=== PATIENT | male | born 1950 | race Caucasian/White ===

== ENCOUNTER 2017-11-25 16:44 | Inpatient (IN) | payer OTHER ==
[~2017-11-25] VITALS: Ht 177.8 cm; Wt 74.8 kg
[2017-11-25] MEDS ORDERED: DIATRIZOATE MEGL/DIATRIZOA SOD 30 ML BTL PO ONE (17:12)
[2017-11-25 17:35] LABS: BASOPHILS % 0.3 % (0.0-1.0); EOSINOPHILS # (AUTO) 0.1 (0.0-0.4); EOSINOPHILS % 1.6 % (0.0-6.0); HEMATOCRIT 41.7 % (38.2-49.6); HEMOGLOBIN 14.3 g/dL (14.0-18.0); LYMPHOCYTES # (AUTO) 1.6 (1.0-3.2); LYMPHOCYTES % 22.1 % (18.0-39.1); MEAN CORPUSCULAR HEMOGLOBIN 29.4 pg (28-32); MEAN CORPUSCULAR HGB CONC 34.3 g/dL (31-35); MEAN CORPUSCULAR VOLUME 85.6 fL (81-99); MONOCYTES # (AUTO) 0.4 (0.2-0.8); MONOCYTES % 5.5 % (4.4-11.3); NEUTROPHILS # (AUTO) 5.2 (2.1-6.9); NEUTROPHILS % 70.2 % (38.7-80.0); PLATELET COUNT 219 x10e3/uL (140-360); RED BLOOD COUNT 4.87 x10e6/uL (4.3-5.7); RED CELL DISTRIBUTION WIDTH 12.8 % (11.7-14.4)
[2017-11-25 17:48] LABS: INR 1.04; PROTHROMBIN TIME 12.8 seconds (11.9-14.5)
[2017-11-25 17:49] LABS: PARTIAL THROMBOPLASTIN TIME 29.2 seconds (23.8-35.5)
[2017-11-25 17:52] LABS: ALANINE AMINOTRANSFERASE 14 IU/L (0-55); ALBUMIN/GLOBULIN RATIO 1.3 (0.8-2.0); ALKALINE PHOSPHATASE 65 IU/L (40-150); ANION GAP 12.6 mmol/L (8-16); BLOOD UREA NITROGEN 15 mg/dL (7-26); BUN/CREATININE RATIO 15 (6-25); CALCIUM 9.3 mg/dL (8.4-10.2); CARBON DIOXIDE 27 mmol/L (22-29); CHLORIDE 105 mmol/L (98-107); CREATININE, SERUM 0.98 mg/dL (0.72-1.25); EST GLOMERULAR FILTRATION RATE > 60 ML/MIN (60-); GLUCOSE 98 mg/dL (74-118); POTASSIUM 3.6 mmol/L (3.5-5.1); SODIUM 141 mmol/L (136-145)
[2017-11-25] MEDS ORDERED: SODIUM CHLORIDE 0.9% 50ML 50 ML ONE (18:07)
[2017-11-25] MEDS ORDERED: IOPAMIDOL 370 MG/ML 200 ML INFUS..BTL INJ ONE (18:08)
--- NOTE | 2017-11-25 18:44 | Diagnostic Imaging Report ---
CT Abdomen And Pelvis with Intravenous Contrast INDICATION: Rectal bleeding TECHNIQUE: Thin collimation axial images obtained from the diaphragm to the level of the pubic symphysis following the uneventful administration of 100 cc of low osmolar, nonionic intravenous contrast. RADIATION DOSE: Total DLP: 380.4 mGy*cm Estimated effective dose: (DLP x 0.015 x size factor) mSv CTDIvol has been reviewed. It is below the limits set by the Radiation Protocol Committee (RPC). COMPARISON: None. ABDOMEN FINDINGS: Lung Bases: Mucus impaction and several areas of the right lower lobe. Visualized portion of the mediastinum is normal. Liver: Normal attenuation. No evidence for mass. Gallbladder: Present and appears normal. No biliary ductal dilatation. Pancreas: Diffuse fatty atrophy without mass or ductal dilatation. Spleen: Normal in size. No evidence of mass.. Adrenal Glands: No evidence for mass. Kidneys: Right: Normal enhancement. No soft tissue mass. No hydronephrosis. Left: Normal enhancement. No mass.. No hydronephrosis. Lymph Nodes: No enlarged abdominal or perirectal lymph nodes. Aorta: Normal in diameter without gross chronic calcifications PELVIS FINDINGS: Bowel: Stomach: Distended with enteric contrast and is normal. Small Bowel: There are 3 diverticula in the duodenum. Enteric contrast is present throughout the majority of the small bowel without wall thickening or dilatation. Distal small bowel is unopacified. Large Bowel: There is fluid distending the rectum and distal portion of the sigmoid colon. Diverticulosis coli is present without associated inflammation. No mural thickening or perirectal inflammation. Mild of stool in the remainder of the colon. Appendix: Normal appendix. Bladder: Normal. The prostate gland is mildly enlarged. No ureteral dilatation. No free fluid or fluid collection. Lymph nodes: No enlarged mesenteric, pelvic, or inguinal lymph nodes. Bones: Mild to moderate degenerative changes of the lower lumbar spine. No focal osseous lesions. Soft tissues: Unremarkable. IMPRESSION: 1. Fluid distention of the rectum and sigmoid colon without mural thickening or surrounding inflammation.. 2. Diverticulosis coli. No CT evidence of diverticulitis. Duodenal diverticula. 3. No bowel obstruction. Normal appendix. 4. Atherosclerosis. 5. Mucus impaction in the right lower lobe. Recommend CT of the chest on an outpatient basis to evaluate the remainder of the lungs for periodic surveillance. Signed by: Dr. Calin Lutz MD on 11/25/2017 6:40 PM
[2017-11-25] MEDS ORDERED: SODIUM CHLORIDE 0.9% 250ML 250 ML IV ONE (19:30)
--- OUTSIDE RECORDS SUMMARY | 2017-11-25 19:47 | XMS REPORT ---
Author Author [facility] Address Unknown Phone Unavailable Care Team Providers Care Child And Youth Program Assistant Name Role Phone SPENCER PALACIO Unavailable Unavailable Problems This patient has no known problems. Allergies, Adverse Reactions, Alerts This patient has no known allergies or adverse reactions. Medications This patient has no known medications. Results Test Description Test Time Test Comments Text Results Atomic Results Result Comments CT ABDOMEN/PELVIS W [place] [address] Patient Name: BARON POLO JR MR #: [id number] : 1950 Age/Sex: 66/M Req #: [id number] Adm Physician: Ordered by: SPENCER PALACIO MD Report #: [id number] Location: ER Room/Bed: Procedure: [id number] CT/CT ABDOMEN/PELVIS W Exam Date: 11/25/17 Exam Time: 1810 REPORT STATUS: Signed CT Abdomen And Pelvis with Intravenous Contrast INDICATION: Rectal bleeding TECHNIQUE : Thin collimation axial images obtained from the diaphragm to the level of the pubic symphysis following the uneventful administration of 100 cc of low osmolar, nonionic intravenous contrast. RADIATION DOSE: Total DLP: 380.4 mGy*cm Estimated effective dose: (DLP x 0.015 x size factor) mSv CTDIvol has been reviewed. It is below the limits set by the Radiation Protocol Committee (RPC). COMPARISON: None. ABDOMEN FINDINGS: Lung Bases: Mucus impaction and several areas of the right lower lobe. Visualized portion of the mediastinum is normal. Liver: Normal attenuation. No evidence for mass. Gallbladder: Present and appears normal. No biliary ductal dilatation. Pancreas: Diffuse fatty atrophy without mass or ductal dilatation. Spleen: Normal in size. No evidence of mass.. Adrenal Glands: No evidence for mass. Kidneys: Right: Normal enhancement. No soft tissue mass. No hydronephrosis. Left: Normal enhancement. No mass.. No hydronephrosis. Lymph Nodes: No enlarged abdominal or perirectal lymph nodes. Aorta: Normal in diameter without gross chronic calcifications PELVIS FINDINGS: Bowel: Stomach: Distended with enteric contrast and is normal. Small Bowel: There are 3 diverticula in the duodenum. Enteric contrast is present throughout the majority of the small bowel without wall thickening or dilatation. Distal small bowel is unopacified. Large Bowel: There is fluid distending the rectum and distal portion of the sigmoid colon. Diverticulosis coli is present without associated inflammation. No mural thickening or perirectal inflammation. Mild of stool in the remainder of the colon. Appendix: Normal appendix. Bladder: Normal. The prostate gland is mildly enlarged. No ureteral dilatation. No free fluid or fluid collection. Lymph nodes: No enlarged mesenteric, pelvic, or inguinal lymph nodes. Bones: Mild to moderate degenerative changes of the lower lumbar spine. No focal osseous lesions. Soft tissues: Unremarkable. IMPRESSION: 1. Fluid distention of the rectum and sigmoid colon without mural thickening or surrounding inflammation.. 2. Diverticulosis coli. No CT evidence of diverticulitis. Duodenal diverticula. 3. No bowel obstruction. Normal appendix. 4. Atherosclerosis. 5. Mucus impaction in the right lower lobe. Recommend CT of the chest on an outpatient basis to evaluate the remainder of the lungs for periodic surveillance. Signed by: Dr. Ana Lutz MD on 11/25/2017 6:40 PM Dictated By: ANA LUTZ MD 39 Transcribed By : AIYANA on 11/25/171839 COPY TO: SPENCER PALACIO MD
[2017-11-25 20:47] LABS: BASOPHILS % 0.3 % (0.0-1.0); EOSINOPHILS # (AUTO) 0.2 (0.0-0.4); EOSINOPHILS % 3.3 % (0.0-6.0); HEMOGLOBIN 13.4 g/dL (14.0-18.0); LYMPHOCYTES # (AUTO) 1.7 (1.0-3.2); LYMPHOCYTES % 25.7 % (18.0-39.1); MEAN CORPUSCULAR HEMOGLOBIN 29.4 pg (28-32); MEAN CORPUSCULAR HGB CONC 34.4 g/dL (31-35); MEAN CORPUSCULAR VOLUME 85.5 fL (81-99); MONOCYTES # (AUTO) 0.4 (0.2-0.8); MONOCYTES % 6.5 % (4.4-11.3); NEUTROPHILS # (AUTO) 4.3 (2.1-6.9); NEUTROPHILS % 63.9 % (38.7-80.0); PLATELET COUNT 221 x10e3/uL (140-360); RED BLOOD COUNT 4.56 x10e6/uL (4.3-5.7); RED CELL DISTRIBUTION WIDTH 12.9 % (11.7-14.4)
[2017-11-25] MEDS: SODIUM CHLORIDE 0.9% 1000ML 1,000 ML IV SCH (21:54)
[2017-11-25] MEDS ORDERED: SODIUM CHLORIDE 0.9% 250ML 250 ML ONE (23:33)
[2017-11-26 02:11] LABS: HEMOGLOBIN 12.3 g/dL (14.0-18.0)
[2017-11-26 02:51] LABS: BASOPHILS % 0.3 % (0.0-1.0); EOSINOPHILS # (AUTO) 0.2 (0.0-0.4); EOSINOPHILS % 2.6 % (0.0-6.0); HEMATOCRIT 35.9 % (38.2-49.6); HEMOGLOBIN 12.2 g/dL (14.0-18.0); LYMPHOCYTES # (AUTO) 1.9 (1.0-3.2); LYMPHOCYTES % 24.1 % (18.0-39.1); MEAN CORPUSCULAR HEMOGLOBIN 29.3 pg (28-32); MEAN CORPUSCULAR VOLUME 86.3 fL (81-99); MONOCYTES # (AUTO) 0.5 (0.2-0.8); MONOCYTES % 6.6 % (4.4-11.3); NEUTROPHILS # (AUTO) 5.3 (2.1-6.9); NEUTROPHILS % 66.1 % (38.7-80.0); PLATELET COUNT 253 x10e3/uL (140-360); RED BLOOD COUNT 4.16 x10e6/uL (4.3-5.7); RED CELL DISTRIBUTION WIDTH 12.8 % (11.7-14.4)
[2017-11-26 08:23] LABS: BASOPHILS % 0.4 % (0.0-1.0); EOSINOPHILS # (AUTO) 0.2 (0.0-0.4); EOSINOPHILS % 3.5 % (0.0-6.0); HEMATOCRIT 34.9 % (38.2-49.6); LYMPHOCYTES # (AUTO) 1.3 (1.0-3.2); LYMPHOCYTES % 24.5 % (18.0-39.1); MEAN CORPUSCULAR HEMOGLOBIN 29.5 pg (28-32); MEAN CORPUSCULAR HGB CONC 34.4 g/dL (31-35); MEAN CORPUSCULAR VOLUME 85.7 fL (81-99); MONOCYTES # (AUTO) 0.4 (0.2-0.8); MONOCYTES % 7.2 % (4.4-11.3); NEUTROPHILS # (AUTO) 3.5 (2.1-6.9); NEUTROPHILS % 64.2 % (38.7-80.0); PLATELET COUNT 236 x10e3/uL (140-360); RED BLOOD COUNT 4.07 x10e6/uL (4.3-5.7); RED CELL DISTRIBUTION WIDTH 12.7 % (11.7-14.4)
[2017-11-26] MEDS: PANTOPRAZOLE 40 MG 10ML VIAL IV SCH ×2 (08:25→16:56)
[2017-11-26 08:51] LABS: ANION GAP 9.5 mmol/L (8-16); BLOOD UREA NITROGEN 14 mg/dL (7-26); BUN/CREATININE RATIO 18 (6-25); CALCIUM 8.6 mg/dL (8.4-10.2); CARBON DIOXIDE 26 mmol/L (22-29); CHLORIDE 108 mmol/L (98-107); CREATININE, SERUM 0.76 mg/dL (0.72-1.25); EST GLOMERULAR FILTRATION RATE > 60 ML/MIN (60-); GLUCOSE 96 mg/dL (74-118); POTASSIUM 3.5 mmol/L (3.5-5.1); SODIUM 140 mmol/L (136-145)
[2017-11-26] MEDS: SODIUM CHLORIDE 0.9% 1000ML 1,000 ML IV SCH ×3 (11:10→16:01)
[2017-11-26 14:40] LABS: BASOPHILS % 0.2 % (0.0-1.0); EOSINOPHILS # (AUTO) 0.2 (0.0-0.4); HEMATOCRIT 36.7 % (38.2-49.6); HEMOGLOBIN 12.4 g/dL (14.0-18.0); LYMPHOCYTES # (AUTO) 1.5 (1.0-3.2); LYMPHOCYTES % 30.2 % (18.0-39.1); MEAN CORPUSCULAR HEMOGLOBIN 29.4 pg (28-32); MEAN CORPUSCULAR HGB CONC 33.8 g/dL (31-35); MONOCYTES # (AUTO) 0.3 (0.2-0.8); MONOCYTES % 5.7 % (4.4-11.3); NEUTROPHILS % 60.5 % (38.7-80.0); PLATELET COUNT 243 x10e3/uL (140-360); RED BLOOD COUNT 4.22 x10e6/uL (4.3-5.7); RED CELL DISTRIBUTION WIDTH 12.9 % (11.7-14.4)
[2017-11-26 14:44] VITALS: BP 171/105
[2017-11-26 14:45] VITALS: BP 171/105
[2017-11-26 14:48] VITALS: BP 168/111
[2017-11-26] MEDS ORDERED: ACETAMIN/BUTALBITAL/CAFFEINE TAB PO PRN (15:30)
[2017-11-26] MEDS ORDERED: PEG (High)/E-LYTE SOLN 4,000 ML BTL PO ONE (15:45)
[2017-11-26] MEDS: CLONIDINE HCL 0.2 MG TAB PO PRN (15:48)
[2017-11-26] MEDS ORDERED: ASPIRIN81 MG PO (17:01)
[2017-11-26] MEDS ORDERED: ACETAMINOPHEN 325 MG TAB PO PRN (17:45)
--- NOTE | 2017-11-26 18:53 | History and Physical ---
HISTORY OF PRESENT ILLNESS: Patient is a 66-year-old male with past medical history positive for coronary artery disease, status post stent placement in 2009, history of diverticulosis secondary to where he was found to have rectal bleeding. He also had an EGD done in the past which came back negative. Patient came here with bright red blood in the stool for a few days. The blood in the stool started today at 3 p.m. REVIEW OF SYSTEMS: CARDIOVASCULAR: No chest pain or palpitation. RESPIRATORY: No shortness of breath. No cough. GASTROINTESTINAL: No nausea, no vomiting. No diarrhea. He was passing bright red blood in the stools. No black stools. No vomiting blood. No abdominal pain. GENITOURINARY: No frequency and no dysuria. ALLERGIES: NOT ALLERGIC TO ANY MEDICATION. SOCIAL HISTORY: He does not smoke and he does not drink. PAST MEDICAL HISTORY: Positive for coronary artery disease, status post stent placement and diverticulosis. PHYSICAL EXAMINATION VITAL SIGNS: Blood pressure 130/80, temperature 98.8, heart rate 80 per minute, respiratory rate 15 per minute. On the BMP, sodium 140, potassium 3.5, chloride 108. CO2 26. BUN 14. Creatinine 0.76. Glucose 96. On the CBC, white blood count 5.3, hemoglobin 12.0, hematocrit 34.9, platelet count 236,000. PT 12.8. INR 1.04. PTT 29.2. AST 17. ALT 14. Total bilirubin 0.6, alkaline phosphatase 65. FINAL IMPRESSION: 1. Lower gastrointestinal bleed. 2. Coronary artery disease, status post stent placement. 3. Uncontrolled hypertension. PLAN OF TREATMENT: Going to start him on Bystolic 5 mg daily. Clonidine 0.1 mg q.4 h. as needed for hypertension. Fioricet 1 tablet q.4 h. as needed for headache and Tylenol 325 mg q.4 h. as needed for pain or fever. Dr. Eyad Coleman, gastroenterology, has been consulted on the case. The patient is getting preparation for colonoscopy, which is most likely going to be done tomorrow. Hemoglobin and hematocrit are stable. Vital signs are stable. The bleeding has resolved. Job#: [id number]
[2017-11-26 20:30] VITALS: BP 128/74
[2017-11-26 20:40] VITALS: BP 128/74
[2017-11-26 21:02] LABS: BASOPHILS % 0.3 % (0.0-1.0); EOSINOPHILS # (AUTO) 0.2 (0.0-0.4); HEMATOCRIT 39.1 % (38.2-49.6); HEMOGLOBIN 12.9 g/dL (14.0-18.0); LYMPHOCYTES # (AUTO) 2.3 (1.0-3.2); LYMPHOCYTES % 29.9 % (18.0-39.1); MEAN CORPUSCULAR HEMOGLOBIN 29.1 pg (28-32); MEAN CORPUSCULAR VOLUME 88.3 fL (81-99); MONOCYTES # (AUTO) 0.5 (0.2-0.8); MONOCYTES % 6.7 % (4.4-11.3); NEUTROPHILS # (AUTO) 4.6 (2.1-6.9); NEUTROPHILS % 59.8 % (38.7-80.0); PLATELET COUNT 258 x10e3/uL (140-360); RED BLOOD COUNT 4.43 x10e6/uL (4.3-5.7); RED CELL DISTRIBUTION WIDTH 12.9 % (11.7-14.4)
[2017-11-27] VITALS: BP 136/81
[2017-11-27] MEDS: SODIUM CHLORIDE 0.9% 1000ML 1,000 ML IV SCH (03:19)
[2017-11-27 04:00] VITALS: BP 166/90
[2017-11-27] MEDS: CLONIDINE HCL 0.2 MG TAB PO PRN (05:40)
[2017-11-27 07:22] LABS: BASOPHILS % 0.3 % (0.0-1.0); EOSINOPHILS # (AUTO) 0.2 (0.0-0.4); EOSINOPHILS % 3.3 % (0.0-6.0); HEMATOCRIT 31.6 % (38.2-49.6); HEMOGLOBIN 10.8 g/dL (14.0-18.0); LYMPHOCYTES # (AUTO) 1.6 (1.0-3.2); LYMPHOCYTES % 26.4 % (18.0-39.1); MEAN CORPUSCULAR HEMOGLOBIN 29.8 pg (28-32); MEAN CORPUSCULAR HGB CONC 34.2 g/dL (31-35); MEAN CORPUSCULAR VOLUME 87.3 fL (81-99); MONOCYTES # (AUTO) 0.4 (0.2-0.8); MONOCYTES % 7.1 % (4.4-11.3); NEUTROPHILS # (AUTO) 3.8 (2.1-6.9); NEUTROPHILS % 62.6 % (38.7-80.0); PLATELET COUNT 217 x10e3/uL (140-360); RED BLOOD COUNT 3.62 x10e6/uL (4.3-5.7); RED CELL DISTRIBUTION WIDTH 12.7 % (11.7-14.4)
[2017-11-27] MEDS ORDERED: CITRATE OF MAGNESIA 300ML BOTTLE PO ONE (07:30)
[2017-11-27 07:46] VITALS: BP 117/65
[2017-11-27 07:50] VITALS: BP 117/65
[2017-11-27] MEDS: PANTOPRAZOLE 40 MG 10ML VIAL IV SCH (08:29)
[2017-11-27] MEDS ORDERED: NEBIVOLOL 10 MG TAB PO SCH (09:00)
[2017-11-27 12:00] VITALS: BP 146/79
[2017-11-27] MEDS ORDERED: FENTANYL CITRATE/PF 100MCG/2 ML INJ ONE (12:10)
--- NOTE | 2017-11-27 15:35 | Discharge Summary ---
This 66-year-old male with past medical history positive for hypertension and history of diverticulosis came to the ER complaining of a few episodes of rectal bleeding before coming to the ER, which completely resolved. So far, hemoglobin and hematocrit have been stable. There is no evidence of any gastrointestinal bleed or hematuria at all. Patient is going to go for a colonoscopy and possible EGD today by Dr. Eyad Coleman. Should he have no evidence of any active bleeding, the patient might be able to go home today and follow up with his primary care physician, Dr. Stone Araiza. PHYSICAL EXAM: Blood pressure 117/65, temperature 96.6, heart rate 92 per minute, respiratory rate 22 per minute, oxygen saturation 99%. On the physical exam, the heart shows regular rhythm, normal S1 and S2 sounds. Lungs are clear bilaterally. Abdomen is soft. Extremities show no evidence of cyanosis, edema or trauma. FINAL IMPRESSION 1. Episode of rectal bleeding, which completely resolved. 2. History of hypertension. LABS: On the blood work, we have BMP with sodium 140, potassium 3.5, chloride 108, CO2 26, BUN 14, creatinine 0.76, glucose 96. On the CBC, white blood count 6.07, hemoglobin 10.8, hematocrit 31.6, platelet count 270,000. PT 12.8, PTT 29.2, INR 1.04. AST 17, ALT 14, total bilirubin 0.6, alkaline phosphatase 65. FINAL IMPRESSION 1. Episode of rectal bleeding, which is completely resolved. 2. Hypertension. Patient is going to have an EGD and colonoscopy. If there is no evidence of any active bleeding, patient might be able to go home today. He will continue with Bystolic 5 mg daily and Protonix 40 mg twice a day. Follow up with his primary care physician in a week. Discharge home if okay with Dr. Eyad Coleman of gastroenterology. ALEX TERRY MD Job#: [id number]
[2017-11-27] MEDS ORDERED: PROPOFOL IV EMULSION 10 MG/ML 50 ML VIAL ONE (17:39)
[2017-11-27] MEDS ORDERED: LIDOCAINE HCL 2% LOCAL INJ 5 ML SDV VIAL INJ ONE (17:39)
[2017-11-27] MEDS ORDERED: HYOSCYAMINE SULFATE 0.5 MG/ML AMP ONE (17:39)
--- NOTE | 2017-11-27 17:56 | Operative Report ---
DATE OF PROCEDURE: November 27, 2017 REFERRING PHYSICIAN: Dr. Alex Terry PROCEDURE PERFORMED: Esophagogastroduodenoscopy with biopsies and a colonoscopy. INDICATIONS FOR ESOPHAGOGASTRODUODENOSCOPY: Acid reflux. INDICATIONS FOR COLONOSCOPY: Rectal bleeding. MEDICATION: Patient was done under MAC. Please see anesthesiologist's note. PROCEDURE: With patient in left lateral decubitus position, flexible fiberoptic Olympus gastroscope was introduced into the esophagus under direct visualization without any difficulty. There was some patchy erythema noted in distal esophagus. A minute tongue of velvety red mucosa was noted to extend proximally from the GE junction that was biopsied to rule out Noble's. The scope was then advanced with ease into the stomach traversing a small sliding hiatal hernia. Mucosa overlying the antrum and the body revealed some patchy erythema and mild to moderate edema and biopsies were obtained sent to stain for H. pylori. A minute polyp was noted in the distal body of the stomach and that was excised per the cold biopsy forceps. The pylorus was of normal contour and shape. Was intubated with ease and the scope was advanced all the way to the 2nd portion of the duodenum. The scope was then withdrawn slowly and a prominent fold was noted in the proximal 2nd portion that was biopsied. The mucosa overlying the duodenal bulb appeared to be within normal limits. The scope was then withdrawn back into the stomach and retroflexed and the mucosa overlying the fundus and the cardia appeared to be within normal limits. The scope was then straightened out. The stomach was decompressed. Scope was subsequently withdrawn. Patient tolerated procedure well. IMPRESSION: 1. Mild distal esophagitis. 2. Rule out Noble's esophagus. 3. Small sliding hiatal hernia. 4. Gastritis biopsied. Biopsy sent to stain for H. pylori. 5. Gastric polyp body excised with the cold biopsy forceps. 6. Prominent fold proximal 2nd portion biopsied. PLAN: Follow up histology. Initiate Protonix 40 mg 1 p.o. q.a.m. a.c. PROCEDURE: Patient was then turned around and after adequate lubrication of the anal canal a flexible fiberoptic Olympus colonoscope was inserted into the rectum with ease and advanced all the way to the cecum. It was then withdrawn slowly. Mucosa overlying the cecum appeared to be within normal limits. Scattered diverticular disease was noted throughout without active bleeding. Otherwise, the ascending, transverse, descending and sigmoid was within normal limits. The rectum appeared to be within normal limits. The scope was then retroflexed into the distal rectum and small internal hemorrhoids were noted, none of which was actively bleeding. The scope was then straightened out. The rectosigmoid area as well as the distal rectal area were decompressed. Scope was subsequently withdrawn. Patient tolerated the procedure well. IMPRESSION 1. Diverticulosis. 2. Internal hemorrhoids, none actively bleeding. PLAN: Follow hemoglobin and hematocrit. The patient might benefit from a followup colonoscopy in 5-10 years. Job#: [id number] cc:ALEX TERRY MD
[2017-11-27 18:30] LABS: BASOPHILS % 0.2 % (0.0-1.0); EOSINOPHILS # (AUTO) 0.2 (0.0-0.4); HEMATOCRIT 32.1 % (38.2-49.6); HEMOGLOBIN 10.7 g/dL (14.0-18.0); LYMPHOCYTES # (AUTO) 1.4 (1.0-3.2); LYMPHOCYTES % 27.2 % (18.0-39.1); MEAN CORPUSCULAR HEMOGLOBIN 29.2 pg (28-32); MEAN CORPUSCULAR HGB CONC 33.3 g/dL (31-35); MEAN CORPUSCULAR VOLUME 87.5 fL (81-99); MONOCYTES # (AUTO) 0.4 (0.2-0.8); MONOCYTES % 7.6 % (4.4-11.3); NEUTROPHILS # (AUTO) 3.3 (2.1-6.9); NEUTROPHILS % 61.8 % (38.7-80.0); PLATELET COUNT 202 x10e3/uL (140-360); RED BLOOD COUNT 3.67 x10e6/uL (4.3-5.7); RED CELL DISTRIBUTION WIDTH 12.9 % (11.7-14.4)
[2017-11-27 20:00] VITALS: BP 142/76
== END 2017-11-27 20:15 | disposition home or self-care (01) | DRG 379 ==
LOC: ER 16:44 → ERHOLD 19:19 → IMCU 11-26 14:29 → MED/SURG 11-26 20:18
PROVIDERS: ADMIT Internal Medicine; ATTEND Internal Medicine
PROC: 30233R1 Transfusion of Nonautologous Platelets into Peripheral Vein, Percutaneous Approach (ICD-10-PCS; 2017-11-25)
PROC: 0DB48ZX Excision of Esophagogastric Junction, Via Natural or Artificial Opening Endoscopic, Diagnostic (ICD-10-PCS; 2017-11-27)
PROC: 0DJD8ZZ Inspection of Lower Intestinal Tract, Via Natural or Artificial Opening Endoscopic (ICD-10-PCS; 2017-11-27)
PROC: 0DB18ZX Excision of Upper Esophagus, Via Natural or Artificial Opening Endoscopic, Diagnostic (ICD-10-PCS; principal; 2017-11-27 15:30)
PROC: 0DB68ZX Excision of Stomach, Via Natural or Artificial Opening Endoscopic, Diagnostic (ICD-10-PCS; 2017-11-27 15:30)
DX: K92.1 Melena (principal); I10 Essential (primary) hypertension; I25.10 Atherosclerotic heart disease of native coronary artery without angina pectoris; Z95.5 Presence of coronary angioplasty implant and graft; K44.9 Diaphragmatic hernia without obstruction or gangrene; K29.70 Gastritis, unspecified, without bleeding; K57.30 Diverticulosis of large intestine without perforation or abscess without bleeding; K64.8 Other hemorrhoids; K21.0 Gastro-esophageal reflux disease with esophagitis
CPT/HCPCS: 36415; 36430; 43239; 45378; 74177; 80048; 80053; 85014; 85018; 85025; 85610; 85730; 86850; 86900; 86920; 88305; 88312; 99284; J1980; J2001; J7030; J7050; P9034; Q9967

== ENCOUNTER → 2018-11-26 | Outpatient (CLI) | payer MEDICARE ==
[~2018-11-26] MED LIST: ASPIRIN81 MG PO
[2018-11-26 09:55] LABS: BASOPHILS % 0.4 % (0.0-1.0); EOSINOPHILS # (AUTO) 0.3 (0.0-0.4); EOSINOPHILS % 4.5 % (0.0-6.0); HEMATOCRIT 44.9 % (38.2-49.6); HEMOGLOBIN 14.9 g/dL (14.0-18.0); LYMPHOCYTES # (AUTO) 1.5 (1.0-3.2); LYMPHOCYTES % 26.7 % (18.0-39.1); MEAN CORPUSCULAR HEMOGLOBIN 29.2 pg (28-32); MEAN CORPUSCULAR HGB CONC 33.2 g/dL (31-35); MEAN CORPUSCULAR VOLUME 87.9 fL (81-99); MONOCYTES # (AUTO) 0.6 (0.2-0.8); MONOCYTES % 11.1 % (4.4-11.3); NEUTROPHILS # (AUTO) 3.2 (2.1-6.9); NEUTROPHILS % 57.1 % (38.7-80.0); PLATELET COUNT 205 x10e3/uL (140-360); RED BLOOD COUNT 5.11 x10e6/uL (4.3-5.7)
[2018-11-26 10:22] LABS: ALANINE AMINOTRANSFERASE 16 IU/L (0-55); ALBUMIN 3.6 g/dL (3.5-5.0); ALKALINE PHOSPHATASE 66 IU/L (40-150); ANION GAP 9.6 mmol/L (8-16); BLOOD UREA NITROGEN 11 mg/dL (7-26); BUN/CREATININE RATIO 13 (6-25); CALCIUM 9.3 mg/dL (8.4-10.2); CARBON DIOXIDE 28 mmol/L (22-29); CHLORIDE 104 mmol/L (98-107); CHOL/HDL RATIO 3.6 (3.9-4.7); CHOLESTEROL 193 MD/DL (0-199); CREATININE, SERUM 0.87 mg/dL (0.72-1.25); EST GLOMERULAR FILTRATION RATE > 60 ML/MIN (60-); GLUCOSE 99 mg/dL (74-118); HDL CHOLESTEROL 54 MG/DL (40-60); LDL CHOLESTEROL 124 MG/DL (60-130); POTASSIUM 3.6 mmol/L (3.5-5.1); SODIUM 138 mmol/L (136-145); TRIGLYCERIDES 74 MG/DL (0-149)
--- NOTE | 2018-11-26 15:09 | Diagnostic Imaging Report ---
EXAM: CHEST 2 VIEWS DATE: 11/26/2018 9:13 AM INDICATION:Respiratory infection COMPARISON: None FINDINGS: Lines and tubes: None Heart size normal. No focal pulmonary opacity, pleural effusion or pneumothorax. There is a calcified granuloma in the left lower lobe. Upper abdomen unremarkable. No acute bony abnormality. IMPRESSION: Normal appearance of the chest. Signed by: Dr. Charlie Edwards M.D. on 11/26/2018 3:06 PM
== END ==
LOC: RAD 09:03
PROVIDERS: ATTEND General Practice
DX: R05 Cough (principal); J06.9 Acute upper respiratory infection, unspecified; Z12.5 Encounter for screening for malignant neoplasm of prostate; Z13.6 Encounter for screening for cardiovascular disorders; I10 Essential (primary) hypertension; R53.83 Other fatigue
CPT/HCPCS: 36415; 71046; 80053; 80061; 84152; 85025

== ENCOUNTER 2019-06-27 18:02 | Inpatient (IN) | payer MEDICARE ==
[~2019-06-27] VITALS: Ht 180.3 cm; Wt 72.3 kg
--- NOTE | 2019-06-27 20:10 | Diagnostic Imaging Report ---
EXAM: CT Abdomen and Pelvis WITHOUT contrast INDICATION: Abdominal pain ^[id number] ^1915 COMPARISON: CT abdomen/pelvis, 11/25/2017 TECHNIQUE: Abdomen and pelvis were scanned utilizing a multidetector helical scanner from the lung base to the pubic symphysis without administration of IV contrast. Absence of intravenous contrast decreases sensitivity for detection of focal lesions and vascular pathology. Coronal and sagittal reformations were obtained. Routine protocol was performed. Dose modulation, iterative reconstruction, and/or weight based adjustment of the mA/kV was utilized to reduce the radiation dose to as low as reasonably achievable. IV CONTRAST: None. ORAL CONTRAST: None RADIATION DOSE: Total DLP: ... mGy*cm Estimated effective dose: (DLP x 0.015 x size factor) mSv COMPLICATIONS: None FINDINGS: LINES and TUBES: None. LOWER THORAX: There are several rounded opacities at the right lung base with appearance suggesting bronchial mucus impaction, stable from previous exam. A calcified granuloma is seen in the left lower lobe. Heart size normal. HEPATOBILIARY: No focal hepatic lesions. No biliary ductal dilation. GALLBLADDER: No radio-opaque stones or sludge. No wall thickening. SPLEEN: No splenomegaly. PANCREAS: No focal masses or ductal dilatation. ADRENALS: No adrenal nodules KIDNEYS/URETERS: No hydronephrosis. There is a stable 2.0 cm exophytic mass of the anterior midportion right kidney with density suggesting cyst. No stones. GI TRACT: Inflammatory fat stranding is seen in the right lower quadrant adjacent to the cecal pole. A normal appendix is not clearly identified. An ill-defined tubular structure (series 2, image 54; series 301, image 41) likely represents a dilated appendix. Sigmoid diverticulosis with no CT evidence for acute diverticulitis. PELVIC ORGANS/BLADDER: Urinary bladder appears unremarkable. No discrete abnormal mass or fluid collection in the pelvis. LYMPH NODES: No dominant lymph node mass is seen in the abdomen, retroperitoneum or pelvis. VESSELS: The aortoiliac vessels are atherosclerotic with extensive calcified plaque. No abnormal dilatation of the abdominal aorta. PERITONEUM / RETROPERITONEUM: No pneumoperitoneum or ascites. BONES: No acute or suspicious bony lesions. There are degenerative changes in the spine. Disc space narrowing at L4-5. SOFT TISSUES: Superficial surrounding soft tissue unremarkable. Findings were discussed with on 06/27/2019 at 8:05 PM. IMPRESSION: 1. There is inflammatory stranding at the cecal pole in the right lower quadrant. An ill-defined tubular structure is seen suggesting dilated appendix and acute appendicitis. There is no free air or discrete fluid collection. 2. Again noted are tubular structures at the right lung base compatible with mucus impacted bronchi. 3. Extensive aortic atherosclerotic calcification and calcification of aortic branches. Staff: Jerry Signed by: Dr. Charlie Edwards M.D. on 06/27/2019 8:07 PM
[2019-06-27] MEDS ORDERED: PIPER-TAZ 3.375 GM 50 ML IV ONE (20:30)
--- NOTE | 2019-06-27 21:03 | NUR ---
[facility] NOTIFIED OF TRANSFER, ETA 30 MINUTES
[2019-06-27] MEDS ORDERED: PIPER-TAZ 3.375 GM 50 ML ONE (21:09)
[2019-06-27] MEDS ORDERED: SODIUM CHLORIDE 0.9% 1000ML 1,000 ML ONE (21:09)
[2019-06-27] MEDS: SODIUM CHLORIDE 0.9% 1000ML 1,000 ML IV SCH (21:22)
--- NOTE | 2019-06-27 21:35 | NUR ---
ATTEMPTED TO CALL REPORT TO CLAUDIO GONZALEZ.
[2019-06-27 22:30] VITALS: BP 151/97
[2019-06-27 22:42] VITALS: BP 151/97
--- NOTE | 2019-06-27 22:49 | NUR ---
SPOKE TO DR. Roxy ESPITIA AT THIS TIME. NEW ORDERS RECEIVED FOR PRN DILAUDID IV, PRN TYLENOL IV AND PRN ZOFRAN IV. ALSO FOR CONSENT OF LAPAROSCOPIC APPENDECTOMY POSSIBLE OPEN.
[2019-06-27] MEDS ORDERED: PANTOPRAZOLE SO40 MG PO (23:14)
[2019-06-27] MEDS ORDERED: METOPROLOL SUCC25 MG PO (23:14)
[2019-06-27] MEDS ORDERED: HYDROMORPHONE 1MG/1ML INJ IV PRN (23:15)
[2019-06-27] MEDS ORDERED: ACETAMINOPHEN 1000 MG/100 ML IV PRN (23:15)
[2019-06-27] MEDS ORDERED: ONDANSETRON HCL INJ 2MG/ML 2ML 2 MG/ML VIAL IV PRN (23:15)
[2019-06-28] VITALS (7 sets, daily range): BP systolic 128–167; BP diastolic 83–101
[2019-06-28] MEDS: PIPER-TAZ 3.375 GM 50 ML IV SCH ×4 (03:16→21:48)
[2019-06-28] MEDS: SODIUM CHLORIDE 0.9% 1000ML 1,000 ML IV SCH ×3 (04:30→20:30)
[2019-06-28 05:55] LABS: BASOPHILS % 0.3 % (0.0-1.0); EOSINOPHILS # (AUTO) 0.3 (0.0-0.4); EOSINOPHILS % 4.2 % (0.0-6.0); HEMATOCRIT 42.3 % (38.2-49.6); HEMOGLOBIN 14.4 g/dL (14.0-18.0); LYMPHOCYTES % 15.1 % (18.0-39.1); MEAN CORPUSCULAR HEMOGLOBIN 29.3 pg (28-32); MONOCYTES # (AUTO) 0.7 (0.2-0.8); MONOCYTES % 10.3 % (4.4-11.3); NEUTROPHILS # (AUTO) 4.7 (2.1-6.9); NEUTROPHILS % 69.7 % (38.7-80.0); PLATELET COUNT 198 x10e3/uL (140-360); RED BLOOD COUNT 4.92 x10e6/uL (4.3-5.7); RED CELL DISTRIBUTION WIDTH 12.8 % (11.7-14.4)
[2019-06-28 06:28] LABS: ANION GAP 14.5 mmol/L (8-16); BLOOD UREA NITROGEN 14 mg/dL (7-26); BUN/CREATININE RATIO 17 (6-25); CALCIUM 8.9 mg/dL (8.4-10.2); CARBON DIOXIDE 27 mmol/L (22-29); CHLORIDE 102 mmol/L (98-107); CREATININE, SERUM 0.83 mg/dL (0.72-1.25); EST GLOMERULAR FILTRATION RATE > 60 ML/MIN (60-); GLUCOSE 84 mg/dL (74-118); POTASSIUM 3.5 mmol/L (3.5-5.1); SODIUM 140 mmol/L (136-145)
--- NOTE | 2019-06-28 07:00 | NUR ---
BEDSIDE ROUNDS COMPLETE NO DISTRESS NOTED,UPDATED ON POC VOICED UNDERSTANDING, DENIES PAIN AT THIS TIME,CALL LIGHT IN REACH WILL CONTINUE TO MONITOR
[2019-06-28] MEDS ORDERED: BUPIVACAINE 0.25%/EPI 30ML SDV INJ ONE (10:18)
--- NOTE | 2019-06-28 10:30 | NUR ---
DOWN TO OR FOR SX LEFT IN STABLE CONDITION
[2019-06-28] MEDS ORDERED: MEPERIDINE HCL INJ 25 MG/ML VIAL ONE (11:54)
--- NOTE | 2019-06-28 12:40 | NUR ---
back to rm [id number] no distress noted, denies pain at this time, vs stable 128/83,76,95.7,16,98% ra, 3 trochar sites to abdomen c/d/i, ivf infusing to r ac 20g no ss of infiltration noted, no other co voiced call light in reach will continue to monitor
[2019-06-28] MEDS: METRONIDAZOLE 500MG/NS 100ML 100 ML IV SCH ×3 (12:57→23:49)
[2019-06-28] MEDS: HYDROCODONE/APAP 7.5MG-325MG 1 EA TAB PO PRN ×2 (14:30→22:56)
--- NOTE | 2019-06-28 17:41 | Operative Report ---
DATE OF PROCEDURE: 06/28/2019 SURGEON: Jabari Morrison MD PREOPERATIVE DIAGNOSIS: Acute appendicitis. POSTOPERATIVE DIAGNOSIS: Acute gangrenous appendicitis. OPERATION PERFORMED: Laparoscopic appendectomy. ANESTHESIA: General. COMPLICATIONS: None. ESTIMATED BLOOD LOSS: Minimal. DESCRIPTION OF PROCEDURE: With the patient lying in bed in the supine position under good general endotracheal anesthesia, the abdomen was prepped with Betadine solution and draped in the usual manner. A Veress needle was introduced into the umbilicus and pneumoperitoneum was established without any difficulty. A 12 mm trocar was placed into the umbilicus and a 10 mm video laparoscope was placed into the intraabdominal cavity. Under direct vision, a 5 mm trocar was placed in the suprapubic region and a 5 mm trocar was placed in the left lower abdomen. Video laparoscopy at this point revealed an inflammatory mass in the right lower quadrant with the cecum being totally plastered to the lateral and anterior abdominal wall. The rest of the abdominal exploration was otherwise within normal limits. The inflammatory mass was then slowly and carefully from the anterior and lateral abdominal wall and we were then able to identify the cecum. There was a hard gangrenous appendix present, which was inflamed all the way down to the base. There was an inflammatory phlegmon in the mesentery of the appendix with the terminal ileum and the omentum being stuck to the anterior aspect of the cecum. All the omentum and terminal ileum was then and we were then able to identified the base of the appendix. The base of the appendix was then circumferentially dissected and divided with an application of the Endo-CORDELL stapler. The mesentery of the appendix was then divided with two applications of the Endo-CORDELL vascular stapler and this a gangrenous appendix, which was then placed in a pouch and removed through the umbilical port. Video laparoscopy was then again carried out. Hemostasis was ascertained. The whole area was thoroughly irrigated. All the excess fluid was aspirated. Hemostasis was again ascertained. The pneumoperitoneum was evacuated and all the trocars were removed under direct vision. The midline fascia at the umbilicus was then closed with a [id number] of 0 Vicryl incorporating the small hernia that the patient had into the closure. The layers were then infiltrated on the way out with solution of 0.25% Marcaine. Subcutaneous tissue was approximated with 3-0 Vicryl and the skin was closed with subcuticular 5-0 Vicryl. Benzoin, Steri-Strips, and Band-Aids were applied. The sponge, lap, and needle count was correct. The patient tolerated the procedure well and returned to the recovery room in stable condition. MD BRUNA Horowitz/MITCHELL /[id number]
[2019-06-28] MEDS ORDERED: DEXAMETHASONE SOD PHOS INJ 4 MG/ML VIAL ONE (18:34)
[2019-06-28] MEDS ORDERED: ONDANSETRON HCL INJ 2MG/ML 2ML 2 MG/ML VIAL ONE (18:34)
[2019-06-28] MEDS ORDERED: LIDOCAINE HCL 2% LOCAL INJ 5 ML SDV VIAL INJ ONE (18:34)
[2019-06-28] MEDS ORDERED: SEVOFLURANE INHAL SOLN 250 ML PEN BTL ONE (18:34)
[2019-06-28] MEDS ORDERED: PHENYLEPHRINE HCL 1% 10 MG/ML VIAL ONE (18:34)
[2019-06-28] MEDS ORDERED: PROPOFOL IV EMULSION 10 MG/ML 20 ML VIAL ONE (18:34)
[2019-06-28] MEDS ORDERED: LABETALOL HCL 5 MG/ML 20ML VIAL ONE (18:34)
[2019-06-28] MEDS ORDERED: KETOROLAC TROMETHAMINE 30 MG/ML VIAL ONE (18:34)
[2019-06-28] MEDS ORDERED: ROCURONIUM BROMIDE 10 MG/ML 5ML VIAL ONE (18:34)
[2019-06-28] MEDS ORDERED: MIDAZOLAM HCL 2 MG/2 ML VIAL ONE (19:21)
[2019-06-28] MEDS ORDERED: FENTANYL CITRATE/PF 100MCG/2 ML INJ ONE (19:21)
[2019-06-29] VITALS (7 sets, daily range): BP systolic 153–168; BP diastolic 93–98
[2019-06-29] MEDS: PIPER-TAZ 3.375 GM 50 ML IV SCH ×4 (03:20→21:08)
[2019-06-29] MEDS: SODIUM CHLORIDE 0.9% 1000ML 1,000 ML IV SCH ×3 (04:30→20:30)
[2019-06-29] MEDS: HYDROCODONE/APAP 7.5MG-325MG 1 EA TAB PO PRN ×3 (04:56→20:15)
[2019-06-29] MEDS: METRONIDAZOLE 500MG/NS 100ML 100 ML IV SCH ×3 (06:01→18:34)
[2019-06-29 06:32] LABS: BASOPHILS % 0.1 % (0.0-1.0); EOSINOPHILS # (AUTO) 0.1 (0.0-0.4); EOSINOPHILS % 1.3 % (0.0-6.0); HEMATOCRIT 39.2 % (38.2-49.6); HEMOGLOBIN 13.1 g/dL (14.0-18.0); LYMPHOCYTES # (AUTO) 1.2 (1.0-3.2); LYMPHOCYTES % 17.7 % (18.0-39.1); MEAN CORPUSCULAR HEMOGLOBIN 29.4 pg (28-32); MEAN CORPUSCULAR HGB CONC 33.4 g/dL (31-35); MEAN CORPUSCULAR VOLUME 87.9 fL (81-99); MONOCYTES # (AUTO) 0.5 (0.2-0.8); MONOCYTES % 7.9 % (4.4-11.3); NEUTROPHILS % 72.9 % (38.7-80.0); PLATELET COUNT 173 x10e3/uL (140-360); RED BLOOD COUNT 4.46 x10e6/uL (4.3-5.7)
[2019-06-29 06:47] LABS: ANION GAP 15.7 mmol/L (8-16); BLOOD UREA NITROGEN 13 mg/dL (7-26); BUN/CREATININE RATIO 16 (6-25); CALCIUM 8.7 mg/dL (8.4-10.2); CARBON DIOXIDE 24 mmol/L (22-29); CHLORIDE 102 mmol/L (98-107); CREATININE, SERUM 0.82 mg/dL (0.72-1.25); EST GLOMERULAR FILTRATION RATE > 60 ML/MIN (60-); GLUCOSE 138 mg/dL (74-118); POTASSIUM 3.7 mmol/L (3.5-5.1); SODIUM 138 mmol/L (136-145)
[2019-06-29] MEDS: PANTOPRAZOLE SOD 40 MG TABEC PO SCH (08:00)
[2019-06-29] MEDS: METOPROLOL SUCCINATE 25 MG TAB XL PO SCH (08:01)
--- NOTE | 2019-06-29 08:25 | NUR ---
HANDOFF REPORT TO ONCOMING NURSE, PATIENT IN BED ALERT AND ORIENTED VERBALIZING NEEDS DENIES PAIN, IVF INFUSING, TOLERATING CLEAR LIQUID DIET, LAPAROSCOPIC SITE WITH BANDAID, CLEAN DRY AND INTACT. INSTRUCTED PATIENT TO AMBULATE AND DO DEEP BREATHING AND COUGHING VERBALIZED UNDERSTATING.
[2019-06-30] VITALS (8 sets, daily range): BP systolic 128–162; BP diastolic 87–106
[2019-06-30] MEDS: PIPER-TAZ 3.375 GM 50 ML IV SCH ×4 (03:00→21:46)
[2019-06-30] MEDS: HYDROCODONE/APAP 7.5MG-325MG 1 EA TAB PO PRN ×2 (03:01→18:09)
[2019-06-30] MEDS: SODIUM CHLORIDE 0.9% 1000ML 1,000 ML IV SCH ×2 (04:30→12:30)
[2019-06-30] MEDS: METRONIDAZOLE 500MG/NS 100ML 100 ML IV SCH ×5 (05:30→23:45)
[2019-06-30] MEDS: METOPROLOL SUCCINATE 25 MG TAB XL PO SCH (05:31)
[2019-06-30 06:14] LABS: BASOPHILS % 0.5 % (0.0-1.0); EOSINOPHILS # (AUTO) 0.3 (0.0-0.4); EOSINOPHILS % 3.5 % (0.0-6.0); HEMOGLOBIN 14.6 g/dL (14.0-18.0); LYMPHOCYTES # (AUTO) 1.8 (1.0-3.2); LYMPHOCYTES % 21.2 % (18.0-39.1); MEAN CORPUSCULAR HEMOGLOBIN 29.1 pg (28-32); MEAN CORPUSCULAR HGB CONC 33.2 g/dL (31-35); MEAN CORPUSCULAR VOLUME 87.8 fL (81-99); MONOCYTES # (AUTO) 0.7 (0.2-0.8); MONOCYTES % 7.8 % (4.4-11.3); NEUTROPHILS # (AUTO) 5.8 (2.1-6.9); NEUTROPHILS % 66.7 % (38.7-80.0); PLATELET COUNT 242 x10e3/uL (140-360); RED BLOOD COUNT 5.01 x10e6/uL (4.3-5.7); RED CELL DISTRIBUTION WIDTH 13.1 % (11.7-14.4)
[2019-06-30 06:50] LABS: BLOOD UREA NITROGEN 6 mg/dL (7-26); BUN/CREATININE RATIO 7 (6-25); CALCIUM 9.3 mg/dL (8.4-10.2); CHLORIDE 103 mmol/L (98-107); CREATININE, SERUM 0.81 mg/dL (0.72-1.25); EST GLOMERULAR FILTRATION RATE > 60 ML/MIN (60-); GLUCOSE 87 mg/dL (74-118); POTASSIUM 3.7 mmol/L (3.5-5.1); SODIUM 143 mmol/L (136-145)
--- NOTE | 2019-06-30 07:00 | NUR ---
RECEIVED PATIENT RESTING IN BED NO S/S OF DISTRESS. BED LOW, WHEELS LOCKED, SIDE RAILS X2. CALL LIGHT IN REACH WILL CONTINUE TO MONITOR PATIENT.
[2019-06-30 07:05] LABS: ANION GAP 13.8 mmol/L (8-16); CARBON DIOXIDE 29 mmol/L (22-29)
[2019-06-30] MEDS: PANTOPRAZOLE SOD 40 MG TABEC PO SCH (08:35)
--- NOTE | 2019-06-30 10:42 | NUR ---
PATIENT A/O X3, EVEN RESPIRATIONS ON RA. LUNG SOUNDS CLEAR TO AUSCULTATION. TELEMETRY #12 AFIB. NO PAIN AT THIS TIME. 3 TROCAR SITES TO ABDOMEN, CLEAN DRY & INTACT. PATIENT PASSING GAS AND HAVING BM'S. RIGHT AC 20 GAUGE IV WITH NS @ 125 CC/HR. PATIENT AMBULATES INDEPENDENTLY. CALL LIGHT IN REACH WILL CONTINUE TO MONITOR PATIENT.
[2019-06-30] MEDS ORDERED: METOPROLOL SUCCINATE 25 MG TAB XL PO NR (12:30)
[2019-06-30] MEDS ORDERED: BISACODYL 10 MG SUPP PR ONE (16:45)
[2019-06-30] MEDS ORDERED: METOPROLOL SUCCINATE 25 MG TAB XL PO SCH (17:45)
--- NOTE | 2019-06-30 19:00 | NUR ---
RECEIVED PATIENT IN BEDSIDE REPORT. PATIENT AMBULATING IN ROOM, STEADY GAIT NOTED. REPORTS HE HAD 2 BMS SINCE RECEIVING SUPPOSITORY. NO PAIN REPORTED. NO S&S OF DISTRESS NOTED. BED LOCKED IN LOWEST POSITION, SIDE RAILS UPX2, CALL LIGHT IN REACH.
[2019-06-30] MEDS: BISACODYL 10 MG SUPP PR SCH (21:00)
[2019-07-01] VITALS (8 sets, daily range): BP systolic 148–190; BP diastolic 86–109
[2019-07-01] MEDS: SODIUM CHLORIDE 0.9% 1000ML 1,000 ML IV SCH ×2 (00:27→20:27)
[2019-07-01] MEDS: PIPER-TAZ 3.375 GM 50 ML IV SCH ×4 (03:26→21:08)
--- NOTE | 2019-07-01 04:26 | NUR ---
PATIENT'S BP WITH AUTOMATIC CUFF NOTED TO BE 189/109, THEN 180/105. RECHECKED MANUALLY: 176/104, HR 88. PAGED MD FLEMING FOR ORDERS, AWAITING CALL BACK.
--- NOTE | 2019-07-01 04:40 | NUR ---
SPOKE WITH MD FLEMING, NEW ORDERS RECEIVED.
[2019-07-01] MEDS ORDERED: METOPROLOL SUCCINATE 25 MG TAB XL PO ONE (04:45)
[2019-07-01] MEDS: METOPROLOL SUCCINATE 25 MG TAB XL PO SCH ×3 (04:53→21:08)
[2019-07-01] MEDS: METRONIDAZOLE 500MG/NS 100ML 100 ML IV SCH ×3 (05:56→17:41)
[2019-07-01 06:17] LABS: BASOPHILS % 0.3 % (0.0-1.0); EOSINOPHILS # (AUTO) 0.1 (0.0-0.4); EOSINOPHILS % 0.5 % (0.0-6.0); HEMATOCRIT 41.9 % (38.2-49.6); LYMPHOCYTES # (AUTO) 1.2 (1.0-3.2); LYMPHOCYTES % 10.9 % (18.0-39.1); MEAN CORPUSCULAR HGB CONC 33.4 g/dL (31-35); MEAN CORPUSCULAR VOLUME 86.7 fL (81-99); MONOCYTES % 8.7 % (4.4-11.3); NEUTROPHILS # (AUTO) 8.7 (2.1-6.9); NEUTROPHILS % 79.1 % (38.7-80.0); PLATELET COUNT 248 x10e3/uL (140-360); RED BLOOD COUNT 4.83 x10e6/uL (4.3-5.7); RED CELL DISTRIBUTION WIDTH 12.7 % (11.7-14.4)
[2019-07-01 06:38] LABS: ANION GAP 16.3 mmol/L (8-16); BLOOD UREA NITROGEN 8 mg/dL (7-26); BUN/CREATININE RATIO 10 (6-25); CARBON DIOXIDE 26 mmol/L (22-29); CHLORIDE 98 mmol/L (98-107); CREATININE, SERUM 0.83 mg/dL (0.72-1.25); EST GLOMERULAR FILTRATION RATE > 60 ML/MIN (60-); GLUCOSE 96 mg/dL (74-118); POTASSIUM 3.3 mmol/L (3.5-5.1); SODIUM 137 mmol/L (136-145)
--- NOTE | 2019-07-01 07:00 | NUR ---
RECEIVED PATIENT AWAKE RESTING IN BED NO S/S OF DISTRESS. BED LOW, WHEELS LOCKED, SIDE RAILS X2. CALL LIGHT IN REACH WILL CONTINUE TO MONITOR PATIENT.
[2019-07-01] MEDS: BISACODYL 10 MG SUPP PR SCH (08:00)
--- NOTE | 2019-07-01 08:04 | NUR ---
SPOKE WITH DR. FLEMING REGARDING BLOOD PRESSURE 190/109. NEW ORDERS IMPLEMENTED.
[2019-07-01] MEDS: PANTOPRAZOLE SOD 40 MG TABEC PO SCH (08:34)
[2019-07-01] MEDS ORDERED: CLONIDINE HCL 0.1 MG TAB PO ONE (08:45)
[2019-07-01] MEDS: CLONIDINE HCL 0.1 MG TAB PO PRN ×2 (11:35→15:53)
[2019-07-01] MEDS ORDERED: POTASSIUM CHLORIDE 20 MEQ TAB CR PO ONE (14:20)
--- NOTE | 2019-07-01 15:05 | NUR ---
IMM explained to patient, patient signed, copy to patient, org to chart
--- NOTE | 2019-07-01 17:27 | NUR ---
NEW ORDER FROM DR. ESPITIA FOR ATIVAN 1 MG PO Q6 PRN.
[2019-07-01] MEDS ORDERED: LORAZEPAM 1 MG TAB PO PRN (17:30)
--- NOTE | 2019-07-01 17:41 | NUR ---
RECHECKED BLOOD PRESSURE 142/87, HEART RATE 77. PATIENT RESTING COMFORTABLY, NO SIGNS OF DISTRESS AT THIS TIME.
--- NOTE | 2019-07-01 19:00 | NUR ---
RECEIVED PATIENT IN BEDSIDE REPORT. PATIENT WALKING IN ROOM, STEADY GAIT NOTED. NO PAIN REPORTED. NO S&S OF DISTRESS NOTED. BED LOCKED IN LOWEST POSITION, SIDE RAILS UPX2, CALL LIGHT IN REACH.
[2019-07-02] VITALS (7 sets, daily range): BP systolic 116–143; BP diastolic 78–94
[2019-07-02] MEDS: METRONIDAZOLE 500MG/NS 100ML 100 ML IV SCH ×4 (00:01→16:45)
[2019-07-02] MEDS: PIPER-TAZ 3.375 GM 50 ML IV SCH ×4 (04:05→21:25)
[2019-07-02] MEDS: METOPROLOL SUCCINATE 25 MG TAB XL PO SCH ×2 (05:50→16:44)
--- NOTE | 2019-07-02 07:15 | NUR ---
Rcvd patient in report this am. Patient is awake in bed at this time. no s/s of distress noted
[2019-07-02] MEDS: PANTOPRAZOLE SOD 40 MG TABEC PO SCH (09:11)
[2019-07-02] MEDS ORDERED: FLECAINIDE ACETATE 100 MG TAB PO SCH (11:00)
[2019-07-02] MEDS ORDERED: METOPROLOL SUCCINATE 25 MG TAB XL PO ONE (12:30)
[2019-07-02] MEDS ORDERED: RIVAROXABAN 20 MG TABLET PO SCH (17:00)
--- NOTE | 2019-07-02 18:03 | NUR ---
Nutrition Screen Note RD Recommendation for Physician: Continue regular diet as tolerated Plan of Care: RD following, monitoring for tolerance and adequacy Nutrition reason for involvement: Length of stay Primary Diagnose(s): acute appendicitis PMH: CAD, diverticulosis Ht: 71 in Wt:159 lb BMI: 22 kg/m2 IBW:[address] Assessment: (07/02/19) Chart reviewed. Labs and meds reviewed. Pt is a 68 year old male admitted with acute appendicitis. Pt was started on a regular diet on 07/01 and was perviously on a liquid diet. Pt stated he ate about 1/3 of his meal today. Per documentation, pt had been eating 75-100% of meals from06/29 to 07/01. Prior to admission, pt stated he was eating all of his meals. No chewing/swallowing issues or N/V/D/C reported. Will continue to monitor unless consulted sooner. Current Diet: Regular diet Malnutrition Evaluation (07/02/19) The patient does not meet criteria for a specified degree of malnutrition at this time. Will re-evaluate at follow-up as appropriate. Diet Education Needs Assessment: Diet education not indicated. Nutrition Care Level: low Signed: Crystal Vaca, RD, LD
[2019-07-03] VITALS: BP 119/72
[2019-07-03] MEDS: PIPER-TAZ 3.375 GM 50 ML IV SCH ×2 (03:20→08:55)
[2019-07-03 04:00] VITALS: BP 136/74
[2019-07-03] MEDS: METRONIDAZOLE 500MG/NS 100ML 100 ML IV SCH ×2 (05:59)
[2019-07-03 08:26] VITALS: BP 154/84
[2019-07-03 08:41] VITALS: BP 154/84
[2019-07-03] MEDS: METOPROLOL SUCCINATE 25 MG TAB XL PO SCH (08:54)
[2019-07-03] MEDS: PANTOPRAZOLE SOD 40 MG TABEC PO SCH (08:54)
[2019-07-03] MEDS: FLECAINIDE ACETATE 100 MG TAB PO SCH ×2 (09:00)
[2019-07-03] MEDS ORDERED: LEVAQUIN500 MG PO (11:01)
[2019-07-03] MEDS ORDERED: TYLENOL WITH C1 EACH PO (11:01)
[2019-07-03] MEDS ORDERED: XARELTO20 MG PO (11:02)
[2019-07-03] MEDS ORDERED: FLECAINIDE ACET50 MG PO (11:02)
[2019-07-03] MEDS ORDERED: METOPROLOL TART50 MG PO (11:03)
[2019-07-03] MEDS ORDERED: POTASSIUM CHLORIDE 20 MEQ TAB CR PO ONE (11:10)
--- NOTE | 2019-07-03 11:55 | NUR ---
patient discharged home, Dr Roxy Morrison had rounds and given prescriptions, notified Dr Rivera (medical social consultant Dr Sainz), patient aware about f/up appointments, denies any pain, no distress noted, prescription given, trochar site is intact, family at bed side, transported via wheelchair to [facility].
== END 2019-07-03 12:12 | disposition home or self-care (01) | DRG 342 ==
LOC: FSED 18:02 → ERHOLD 20:32 → MED/SURG 22:06
PROVIDERS: ADMIT Surgery; ATTEND Surgery
PROC: 0DTJ4ZZ Resection of Appendix, Percutaneous Endoscopic Approach (ICD-10-PCS; principal; 2019-06-28 11:00)
DX: K35.891 Other acute appendicitis without perforation, with gangrene (principal); I48.92 Unspecified atrial flutter; I10 Essential (primary) hypertension; Z79.01 Long term (current) use of anticoagulants
CPT/HCPCS: 36415; 74176; 80048; 80053; 80076; 81003; 85025; 85610; 88304; 93005; 93306; 99284; C1766; J1100; J1885; J2001; J2175; J2250; J2370; J2405; J2543; J3010; J7030